=== PATIENT | female | born 1990 | race Caucasian/White ===

== ENCOUNTER → 2023-05-10 15:23 | Outpatient (REF) | payer OTHER, SELFPAY | LOC: PNTC 15:23 | PROVIDERS: ATTENDING PHYSICIAN Obstetrics & Gynecology | DX: Z36.3 Encounter for antenatal screening for malformations (principal); Z87.59 Personal history of other complications of pregnancy, childbirth and the puerperium | CPT/HCPCS: 76811 ==

== ENCOUNTER → 2023-06-28 11:45 | Outpatient (REF) | payer OTHER, SELFPAY | LOC: REG 11:45 | PROVIDERS: ATTENDING PHYSICIAN Obstetrics & Gynecology | DX: Z34.90 Encounter for supervision of normal pregnancy, unspecified, unspecified trimester (principal) | CPT/HCPCS: 36415; 86850; 86900; 86901; J2790 ==

== ENCOUNTER → 2023-07-26 16:18 | Outpatient (REF) | payer OTHER, SELFPAY | LOC: PNTC 16:18 | PROVIDERS: ATTENDING PHYSICIAN Obstetrics & Gynecology | DX: O36.4XX0 Maternal care for intrauterine death, not applicable or unspecified (principal); O69.3XX0 Labor and delivery complicated by short cord, not applicable or unspecified | CPT/HCPCS: 59025; 76816; 76818 ==

== ENCOUNTER → 2023-08-02 16:17 | Outpatient (REF) | payer OTHER, SELFPAY | LOC: PNTC 16:17 | PROVIDERS: ATTENDING PHYSICIAN Obstetrics & Gynecology | DX: O69.3XX0 Labor and delivery complicated by short cord, not applicable or unspecified (principal); O36.4XX0 Maternal care for intrauterine death, not applicable or unspecified | CPT/HCPCS: 59025; 76815 ==

== ENCOUNTER → 2023-08-09 16:05 | Outpatient (REF) | payer OTHER, SELFPAY | LOC: PNTC 16:05 | PROVIDERS: ATTENDING PHYSICIAN Obstetrics & Gynecology | DX: O36.4XX0 Maternal care for intrauterine death, not applicable or unspecified (principal) | CPT/HCPCS: 59025; 76815 ==

== ENCOUNTER → 2023-08-16 16:04 | Outpatient (REF) | payer OTHER, SELFPAY | LOC: PNTC 16:04 | PROVIDERS: ATTENDING PHYSICIAN Obstetrics & Gynecology | DX: O36.4XX0 Maternal care for intrauterine death, not applicable or unspecified (principal); O69.3XX0 Labor and delivery complicated by short cord, not applicable or unspecified | CPT/HCPCS: 59025; 76815 ==

== ENCOUNTER → 2023-08-30 13:10 | Outpatient (REF) | payer OTHER, SELFPAY | LOC: PNTC 13:10 | PROVIDERS: ATTENDING PHYSICIAN Obstetrics & Gynecology | DX: O36.4XX0 Maternal care for intrauterine death, not applicable or unspecified (principal); O69.3XX0 Labor and delivery complicated by short cord, not applicable or unspecified | CPT/HCPCS: 59025; 76816 ==

== ENCOUNTER → 2023-09-06 07:34 | Outpatient (REF) | payer OTHER, SELFPAY | LOC: PNTC 07:34 | PROVIDERS: ATTENDING PHYSICIAN Obstetrics & Gynecology | DX: O26.30 Retained intrauterine contraceptive device in pregnancy, unspecified trimester (principal); O69.3XX0 Labor and delivery complicated by short cord, not applicable or unspecified | CPT/HCPCS: 59025; 76815 ==

== ENCOUNTER 2023-09-09 20:45 | Emergency (ER) | payer OTHER, SELFPAY ==
[2023-09-09 20:45] VITALS: BMI 28.8
[2023-09-09 20:47] VITALS: BP 136/69
[2023-09-09 21:44] VITALS: BP 119/86
[2023-09-09] MEDS: TYLENOL 1000 MG PO (21:54)
[2023-09-09] MEDS: LET TOPICAL ANESTHETIC GEL 3 ML TOPICAL (22:24)
[2023-09-09] MEDS: ROXICODONE 5 MG PO (22:24)
[2023-09-09] MEDS: LIDOCAINE URO-JET 2% 1 SYRINGE TOPICAL (23:00)
--- NOTE | 2023-09-10 00:04 | ED.GENMED ---
History of Present Illness
General
Chief Complaint: Skin Problem
Source: patient
Exam Limitations: none
Time Seen by Provider: 09/09/23 21:38
Nursing documentation reviewed up to this point in time: agreed with
Travel History
Have you had any contact with someone who has COVID-19?: No
Do you have any symptoms of coronavirus? Fever > 100 degrees, chills, cough, shortness of breath, sore throat, loss of taste or smell, muscle aches, or headache?: No
History of Present Illness
History of Present Illness:
Patient to ED wt complaint of rectal pain. Pain started yesterday. Unable to get comfortable. Using PReparation H without relief. Brought to ED by spouse for eval. She is 39weeks . Csection scheduled for Tuesday.
Past History
Past History
ED Past Medical History: None
ED Past Surgical History: None
Review of Systems
Review of Systems
Allergies reviewed?: Yes
All Other Systems: ROS reviewed and negative except as documented in HPI and ROS
Constitutional: Reports no symptoms
ABD/GI: Reports no symptoms
: Reports other (Thrombosed hemorrhoid)
Musculoskeletal: Reports no symptoms
Skin: Reports no symptoms
Neurological: Reports no symptoms
Psychiatric: Reports no symptoms
Phy Exam
General Physical Exam
General Presentation: well appearing and mild distress
General age: appears stated age
General Skin: warm and dry
General Habitus: normal
General Mental: alert
General Hydration: appears well hydrated
Gastrointestinal Exam
Gastrointestinal Exam: non tender
Rectal Exam: hemorrhoids (Thrombosed hemorrhoid. Injected with Lidocaine 1%, 2 small incisions made, 2 clots removed. )
Musculoskeletal Exam
Musculoskeletal Exam: full ROM
Skin Exam
Skin Exam: normal color, warm/dry and no rash
Psychiatric Exam
Psychiatric Exam: normal mood/affect
Course
Orders/Labs/Results
Orders:
Orders
09/09/23 21:51
Acetaminophen [Tylenol] 1,000 mg .ROUTE .STK-MED ONE
09/09/23 21:54
Acetaminophen [Tylenol] 1,000 mg PO NOW STA
09/09/23 22:08
Lidocaine/Epinephrine/Tetracai [Let Topical Anesthetic Gel] 3 ml TOPICAL NOW STA
09/09/23 22:18
Oxycodone [Roxicodone] 5 mg PO NOW STA
09/09/23 22:53
Lidocaine 2% [Lidocaine Uro-Jet 2%] 1 syringe TOPICAL NOW STA
Vital Signs
Initial and Last Documented VS:
Initial Vital Signs
Temp Pulse Resp BP Pulse Ox
98.5 F 87 20 136/69 99
09/09/23 20:47 09/09/23 20:47 09/09/23 20:47 09/09/23 20:47 09/09/23 20:47
Last Documented Vital Signs
Temp Pulse Resp BP Pulse Ox
98.5 F 88 20 119/86 98
09/09/23 20:47 09/09/23 21:44 09/09/23 21:44 09/09/23 21:44 09/09/23 21:44
*Critical Care Note
Total Time (30-74mins, 75-104mins- exclusive of procedures): Not Applicable
Update Note
Update Note:
Patient given dose of oxycodone in dept due to her pain level. Given rx for 2 additional doses. Discussed potential exposure to med and she is aware and agreeable. Givne instructions on s/s to return to ED and she is agreeable to plan.
ED Attending Note
-
Portions of this chart may have been created with voice recognition software.� Occasional wrong word or��sound alike� substitutions may have occurred due to the inherent limitations of voice recognition software.
Discharge Plan
Departure
Patient Disposition: Home (Routine Discharge)
Date of Disposition: 09/09/23
Time of Disposition: 21:39
Patient with high blood pressure during this ER visit?: No
Condition: Good
Covid-19: Not Applicable
Discharge Problem:
External hemorrhoid, thrombosed
Instructions: How to Do a Sitz Bath, Hemorrhoids ED
Prescriptions:
New
oxycodone 5 mg tablet
5 mg PO BID PRN (Reason: Pain) Qty: 3 0RF
Referrals:
Jonathan Bauer MD [Active] - (Colorectal surgeon)
Activity Restrictions/Additional Instructions:
Continue warm soaks. Tylenol PRN pain. Use stool softener daily
Interventions
Interventions:
*Risk Screen - Suicide Last Done: 09/09/23 20:47
*General Assessment Last Done: 09/09/23 20:47
*Neglect/Abuse Screening Last Done: 09/09/23 20:47
ED- Fall Risk Assessment Last Done: 09/09/23 23:02
*ED COVID-19 Vaccine History Last Done: 09/09/23 23:02
*Nursing Disposition Last Done: 09/09/23 23:02
ED-Skin Assessment Last Done: 09/09/23 23:02
Discharge Date and Time
Discharge Date/Time: 09/09/23 23:04
Print Language: BELGIAN
== END 2023-09-09 23:04 | disposition home or self-care (01) ==
LOC: EMR 20:45
PROVIDERS: EMERGENCY PHYSICIAN Emergency Medicine; FAMILY PHYSICIAN Internal Medicine
DX: O22.43 Hemorrhoids in pregnancy, third trimester (principal); Z3A.39 39 weeks gestation of pregnancy; K64.5 Perianal venous thrombosis; K64.4 Residual hemorrhoidal skin tags
CPT/HCPCS: 46083; 99283

== ENCOUNTER 2023-09-13 07:06 | Inpatient (IN) | payer OTHER, SELFPAY ==
[2023-09-13 07:33] VITALS: BP 119/66; BMI 29.6
[2023-09-13] MEDS: LR 1000 IV ×2 (07:45→10:18)
[2023-09-13 08:05] LABS: Hematocrit 35.1 % (37.0-47.0); Hemoglobin 11.8 g/dL (12.0-16.0); Mean Corp Hgb Conc. 33.6 g/dL (33.0-37.0); Mean Corpuscular Hgb 31.8 pg (27.0-31.0); Mean Corpuscular Volume 94.6 fL (81.0-99.0); Platelet Count 130 10^3/uL (130-400); Red Blood Cell Count 3.71 10^6/uL (4.20-5.40); Red Cell Dist. Width 14.2 % (11.5-14.5); White Blood Cell Count 9.7 10^3/uL (4.8-10.8)
[2023-09-13] MEDS: TYLENOL 1000 MG PO (09:33)
[2023-09-13] MEDS: BICITRA 30 ML PO (10:18)
[2023-09-13] MEDS: ANCEF 10 IV (11:15)
[2023-09-13] MEDS: PITOCIN 30 UNITS/NSS 500 ML IV (11:36)
[2023-09-13] MEDS: MORPHINE SULFATE 4 MG IV (13:50)
[2023-09-13] MEDS: TORADOL 15 MG IV ×3 (15:01→21:08)
[2023-09-13] MEDS: PERCOCET 5/325 1 TABLET PO (21:10)
[2023-09-14] MEDS: TORADOL 15 MG IV ×2 (03:34→09:37)
[2023-09-14] MEDS: PERCOCET 5/325 1 TABLET PO ×3 (03:42→23:33)
[2023-09-14] MEDS: SENOKOT-S 1 TABLET PO (03:42)
[2023-09-14 04:00] LABS: Hematocrit 29.1 % (37.0-47.0); Hemoglobin 9.9 g/dL (12.0-16.0); Mean Corpuscular Hgb 32.1 pg (27.0-31.0); Mean Corpuscular Volume 94.5 fL (81.0-99.0); Mean Platelet Volume 11.6 fL (7.4-10.4); Platelet Count 124 10^3/uL (130-400); Red Blood Cell Count 3.08 10^6/uL (4.20-5.40); Red Cell Dist. Width 14.6 % (11.5-14.5); White Blood Cell Count 9.8 10^3/uL (4.8-10.8)
[2023-09-14] MEDS: ZOLOFT 50 MG PO (07:38)
[2023-09-14] MEDS: PRENATAL PLUS PO (09:33)
--- NOTE | 2023-09-14 09:54 | W.PN.ANS.POP ---
Anesthesia Post Operative
- Anesthesia Post Op Note
Vital Signs Stable-See Nursing Note: Yes
Airway Patent: Yes
Adequate Pain Control: Yes
Change in Mental Status: No
Current Postoperative Nausea & Vomiting: No
Anesthesia Complications: No
General Anesthetic Recall: No
Unplanned Admission: No
Post Op Hydration Adequate: Yes
[2023-09-14 14:27] LABS: Syphilis/T. pallidum Ab Reflex Negative (Negative)
[2023-09-14] MEDS: MOTRIN 600 MG PO ×2 (15:37→21:40)
[2023-09-14] MEDS: TYLENOL 650 MG PO ×2 (15:38→21:41)
[2023-09-14] MEDS: MYLICON 80 MG PO (20:30)
[2023-09-15] MEDS: MOTRIN 600 MG PO ×3 (06:10→19:57)
[2023-09-15] MEDS: PERCOCET 5/325 1 TABLET PO ×3 (06:10→19:57)
[2023-09-15] MEDS: FEOSOL 325 MG PO (09:45)
[2023-09-15] MEDS: SENOKOT-S 1 TABLET PO (09:45)
[2023-09-15] MEDS: PRENATAL PLUS 1 TABLET PO (09:45)
[2023-09-15] MEDS: ZOLOFT 50 MG PO (09:46)
--- NOTE | 2023-09-15 11:22 | CM ---
Met with parents Stephanie and Ryan
Mom reports she lives with her and 2 daughters and son in a 2 story home at listed address
Parents have named new baby girl - Leni
Mom reports she has all supplies for baby including crib and car seat
Mom plan to breast and bottle feed infant
Attic Blower for will be Sergei Christopher on
Instructed to call insurance to add infant to policy
Given info on the WIC and the [facility] Maternal Child VN program
[2023-09-15] MEDS: MYLICON 80 MG PO (12:51)
[2023-09-16] MEDS: PERCOCET 5/325 1 TABLET PO ×2 (01:54→09:13)
[2023-09-16] MEDS: MOTRIN 600 MG PO ×2 (01:54→07:59)
[2023-09-16] MEDS: ZOLOFT 50 MG PO (07:59)
[2023-09-16] MEDS: TYLENOL 650 MG PO (07:59)
[2023-09-16] MEDS: PRENATAL PLUS 1 TABLET PO (07:59)
[2023-09-16] MEDS: FEOSOL 325 MG PO (07:59)
--- NOTE | 2023-09-16 09:31 | W.DS.TRANS ---
DC Summary - Paraprofessional Aide
-
Discharge Instructions:
Discharge Diagnosis/Procedures Section
Instructions:
Stand-Alone Forms: LDRP Delivery
Changes to Home Medications: No
Discharge Medications:
DC Medications w/original date entered in [employer]
iypilrpk-[id number]-Bp-FA 1 mg tablet 1 tab PO DAILY Supplement 09/13/23
acetaminophen 325 mg tablet 650 mg (2 x 325 mg) PO Q4HPRN PRN mild pain #0 tabs 09/16/23
ferrous sulfate 325 mg (65 mg iron) tablet (FeroSul) 325 mg PO DAILY #30 tabs 09/16/23
ibuprofen 600 mg tablet 600 mg PO Q6HPRN PRN cramps #45 tabs 09/16/23
oxycodone-acetaminophen 5 mg-325 mg tablet 1 tab PO Q4HPRN PRN moderate pain #10 tabs 09/16/23
sennosides 8.6 mg-docusate sodium 50 mg tablet (Stool Softener-Stimulant Laxative) 1 tab PO DAILYPRN PRN constipation #0 tabs 09/16/23
sertraline 50 mg tablet 50 mg PO DAILY #90 tabs 09/16/23
Home Medication Changes
Pending Results: No
[2023-09-16] MEDS: ADACEL 0.5 ML IM (10:00)
== END 2023-09-16 10:53 | disposition home or self-care (01) | DRG 788 ==
LOC: LDRP 07:06
PROVIDERS: ADMITTING PHYSICIAN Obstetrics & Gynecology; FAMILY PHYSICIAN Internal Medicine
PROC: 10D00Z1 Extraction of Products of Conception, Low, Open Approach (ICD-10-PCS; 2023-09-13)
DX: O32.1XX0 Maternal care for breech presentation, not applicable or unspecified (principal); Z3A.39 39 weeks gestation of pregnancy; Z37.0 Single live birth; F32.A Depression, unspecified; O99.344 Other mental disorders complicating childbirth; F41.9 Anxiety disorder, unspecified; Z83.3 Family history of diabetes mellitus; Z82.49 Family history of ischemic heart disease and other diseases of the circulatory system; Z82.3 Family history of stroke; Z80.0 Family history of malignant neoplasm of digestive organs; N83.291 Other ovarian cyst, right side; O90.81 Anemia of the puerperium; D64.9 Anemia, unspecified
CPT/HCPCS: 85027; 86780; 86850; 86870; 86900; 86901; 90715

== ENCOUNTER 2024-07-07 09:52 | Emergency (ER) | payer OTHER, SELFPAY ==
[2024-07-07 09:57] VITALS: BMI 22.6
[2024-07-07 10:01] VITALS: BP 120/63
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
== END 2024-07-07 11:41 | disposition home or self-care (01) ==
LOC: EMR 09:52
PROVIDERS: EMERGENCY PHYSICIAN Emergency Medicine; FAMILY PHYSICIAN Family Medicine
DX: F32.A Depression, unspecified (principal); F41.9 Anxiety disorder, unspecified; Z79.899 Other long term (current) drug therapy
CPT/HCPCS: 99283

== ENCOUNTER 2024-10-13 19:06 | Emergency (ER) | payer OTHER, SELFPAY ==
[2024-10-13 19:11] VITALS: BP 128/91
[2024-10-13 20:10] LABS: % Basophils 0.9 % (0-2); % Eosinophils 2.2 % (0-6); % Immature Granulocytes 0.3 % (0-0.5); % Lymphocytes 23.6 % (20.5-51.1); % Monocytes 9.4 % (1.7-9.3); % Neutrophils 63.6 % (42.2-75.2); Absolute Basophils 0.1 10^3/uL (0-0.2); Absolute Eosinophils 0.1 10^3/uL (0-0.7); Absolute Lymphocytes 1.5 10^3/uL (1.2-3.4); Absolute Monocytes 0.6 10^3/uL (0.1-0.6); Absolute Neutrophils 4.1 10^3/uL (1.4-6.5); Hematocrit 40.1 % (37.0-47.0); Hemoglobin 13.8 g/dL (12.0-16.0); Mean Corp Hgb Conc. 34.4 g/dL (33.0-37.0); Mean Corpuscular Hgb 31.9 pg (27.0-31.0); Mean Corpuscular Volume 92.8 fL (81.0-99.0); Nucleated Red Blood Cells % 0 %; Platelet Count 166 10^3/uL (130-400); Red Blood Cell Count 4.32 10^6/uL (4.20-5.40); Red Cell Dist. Width 12.3 % (11.5-14.5); White Blood Cell Count 6.4 10^3/uL (4.8-10.8)
[2024-10-13 20:28] LABS: ALT (SGPT) 28 U/L (0-35); AST (SGOT) 19 U/L (14-36); Albumin 4.3 g/dl (3.5-5.0); Alkaline Phosphatase 43 U/L (38-126); Blood Urea Nitrogen 16 mg/dl (7-17); Calcium 9.5 mg/dl (8.4-10.2); Carbon Dioxide 25 mmol/L (22-30); Chloride 107 mmol/L (98-107); Glucose 102 mg/dl (70-99); Lithium 0.6 mmol/L (0.6-1.2); Potassium 3.9 mmol/L (3.5-5.1); Sodium 137 mmol/L (135-145); Total Bilirubin 0.5 mg/dl (0.2-1.3); eGFR > 60.00
[2024-10-13] MEDS: ANTIVERT 25 MG PO (20:48)
[2024-10-13 20:52] LABS: TSH Reflex To Free T4 4.07 uIU/ml (0.47-4.68)
--- NOTE | 2024-10-13 21:25 | ED.GENMED ---
History of Present Illness
General
Chief Complaint: Dizziness
Source: patient
Exam Limitations: none
Time Seen by Provider: 10/13/24 19:40
Nursing documentation reviewed up to this point in time: agreed with
History of Present Illness
History of Present Illness:
34-year-old female presenting to the emergency department today with concerns of room spinning dizziness throughout the day today. Seem to occur after increasing lithium dose 2 days ago. Denies any numbness weakness nausea vomiting changes in
vision any recent illnesses any fevers.
Past History
Past History
ED Past Medical History: Psychiatric (depression)
ED Past Surgical History:
Social History
Tobacco: Non-smoker
Alcohol: Occasional
Drug: None
Personal:
Living: with family
Employment: Not employed
Review of Systems
Review of Systems
Allergies reviewed?: Yes
All Other Systems: ROS reviewed and negative except as documented in HPI and ROS
Phy Exam
Physical Exam
Physical Exam:
GENERAL: Alert , in no apparent distress
EYE: pupils equal and reactive
NECK: Supple, no significant adenopathy.
ENT: o/p clr, mmm.
CARDIAC: Regular rate and rhythm .
LUNGS: Clear breath sounds bilaterally, no acute respiratory distress, no wheezes/rales/rhonchi
ABDOMEN: Soft, without focal tenderness, no r/g, no cvat
NEUROLOGICAL: Alert and oriented, no focal neuro deficits
SKIN: Warm and dry, skin intact.
MUSCULOSKELETAL: No edema, well perfused.
PSYCH: Normal and appropriate interaction.
Course
Orders/Labs/Results
Orders:
Orders
10/13/24 19:07
ECG [Electrocardiogram (*1)] Urgent
Reason for Study: Vertigo / Dizzy
EKG- Treatment ONCE
10/13/24 20:03
CBC/With Diff [Complete Blood Count/With Diff] Urgent
CMP [Comprehensive Metabolic Panel] Urgent
Shafter Urgent
TSH Reflex To Free T4 Urgent
10/13/24 20:36
Meclizine [Antivert] 25 mg PO NOW STA
Abnormal Lab Results
10/13/24
20:03
MCH 31.9 H pg
(27.0-31.0)
MPV 11.0 H fL
(7.4-10.4)
Monocytes % 9.4 H %
(1.7-9.3)
Glucose 102 H mg/dl
(70-99)
10/13/24 20:03
10/13/24 20:03
Vital Signs
Initial and Last Documented VS:
Initial Vital Signs
Temp Pulse Resp BP Pulse Ox
98.3 F 92 16 128/91 100
10/13/24 19:11 10/13/24 19:11 10/13/24 19:11 10/13/24 19:11 10/13/24 19:11
Last Documented Vital Signs
Temp Pulse Resp BP Pulse Ox
98.3 F 92 16 128/91 100
10/13/24 19:11 10/13/24 19:11 10/13/24 19:11 10/13/24 19:11 10/13/24 19:11
MDM/Problems Addressed
MDM/Problems Addressed:
34-year-old female presenting to the emergency department today with concerns of room spinning dizziness and some fatigue after increasing dose of lithium a few days ago. Here vital signs normal patient well-appearing normal neurologic evaluation
able to ambulate well without any difficulty lithium level normal labs unremarkable was given meclizine with complete resolution of symptoms. Ambulated and walked out without difficulty advised for close outpatient follow-up. Return precautions
given.
*Critical Care Note
Total Time (30-74mins, 75-104mins- exclusive of procedures): Not Applicable
ED Attending Note
-
Portions of this chart may have been created with voice recognition software.� Occasional wrong word or��sound alike� substitutions may have occurred due to the inherent limitations of voice recognition software.
Discharge Plan
Departure
Patient Disposition: Home (Routine Discharge)
Date of Disposition: 10/13/24
Time of Disposition: 21:29
Patient with high blood pressure during this ER visit?: No
Condition: Good
Covid-19: Not Applicable
Discharge Problem:
Vertigo
Instructions: Vertigo (a Type of Dizziness) (DC)
Prescriptions:
New
meclizine 25 mg tablet
25 mg PO BID PRN (Reason: motion sickness) Qty: 7 0RF
No Action
hjwjqtxm-yjo-St-FA 1 mg Tablet
1 tab PO DAILY
acetaminophen 325 mg Tablet
650 mg PO Q4HPRN PRN (Reason: mild pain) Qty: 0 0RF
sennosides-docusate sodium [Stool Softener-Stimulant Laxat] 8.6-50 mg Tablet
1 tab PO DAILYPRN PRN (Reason: constipation) Qty: 0 0RF
oxycodone-acetaminophen 5-325 mg Tablet
1 tab PO Q4HPRN PRN (Reason: moderate pain) Qty: 10 0RF
ferrous sulfate [FeroSul] 325 mg (65 mg iron) Tablet
325 mg PO DAILY Qty: 30 0RF
ibuprofen 600 mg Tablet
600 mg PO Q6HPRN PRN (Reason: cramps) Qty: 45 0RF
sertraline 50 mg Tablet
50 mg PO DAILY Qty: 90 0RF
Referrals:
Meño Gonzalez MD [Family Provider, Family Practice]
Activity Restrictions/Additional Instructions:
You came to the emergency department today with concerns of dizziness. Here had a reassuring assessment. Please follow closely as an outpatient. Return for any worsening, new or concerning symptoms.
Interventions
Interventions:
*Risk Screen - Suicide Last Done: 10/13/24 21:25
*General Assessment Last Done: 10/13/24 21:25
*Neglect/Abuse Screening Last Done: 10/13/24 21:25
*ED- Fall Risk Assessment Last Done: 10/13/24 21:25
ED- Neurological Assessment Last Done: 10/13/24 20:00
ED Swallowing Screen Last Done: 10/13/24 20:00
Discharge Date and Time
Print Language: CROATIAN
== END 2024-10-13 21:38 | disposition home or self-care (01) ==
LOC: EMR 19:06
PROVIDERS: Physician Assistant; EMERGENCY PHYSICIAN Emergency Medicine; FAMILY PHYSICIAN Family Medicine
DX: R42 Dizziness and giddiness (principal); R53.83 Other fatigue; F32.A Depression, unspecified; Z79.899 Other long term (current) drug therapy
CPT/HCPCS: 99284; 80053; 80178; 84443; 85025; 93005